=== PATIENT | male | born 1960 | race Caucasian/White ===

== ENCOUNTER 2019-08-12 13:31 | Emergency (ER) | payer MEDICAID ==
[~2019-08-12] VITALS: Ht 195.6 cm; Wt 102.1 kg
[2019-08-12 14:52] VITALS: BP 144/76
[2019-08-12] MEDS ORDERED: TETANUS-DIPTH-ACEL PERTUSSIS 0.5ML SYRG IM ONE (16:00)
[2019-08-12] MEDS ORDERED: LIDOCAINE 1% HCL (LOCAL ANESTH.) INJ 20ML MDV IJ ONE (16:00)
== END 2019-08-12 16:23 | disposition home or self-care (01) ==
LOC: ER 13:31
DX: S51.811A Laceration without foreign body of right forearm, initial encounter (principal); I48.91 Unspecified atrial fibrillation; Y28.8XXA Contact with other sharp object, undetermined intent, initial encounter; Y93.01 Activity, walking, marching and hiking; Y92.89 Other specified places as the place of occurrence of the external cause; Y99.8 Other external cause status
CPT/HCPCS: 12004; 90471; 90715; 99283; J2001